=== PATIENT | male | born 1965 | race Caucasian/White ===

== ENCOUNTER → 2017-06-04 | Outpatient (CLI) | payer OTHER ==
[~2017-06-04] MED LIST: BUSP30TA2 PO; LORA1TAB PO; OXCA150T5 PO; QUET300T3 PO; QUET50TA PO; SIMV40TA PO
[2017-06-04 14:12] LABS: BASOPHILS % (AUTO) 0.4 % (0-1); EOSINOPHILS # (AUTO) 0.1 X10'3 (0-0.9); EOSINOPHILS % (AUTO) 1.3 % (0-6); HEMATOCRIT 45.4 % (42.0-52.0); HEMOGLOBIN 15.4 g/dl (14.0-17.9); LYMPHOCYTES # (AUTO) 2.3 X10'3 (1.1-4.8); LYMPHOCYTES % (AUTO) 23.7 % (21-51); MEAN CORPUSCULAR HEMOGLOBIN 31.3 PG (27.0-31.0); MEAN CORPUSCULAR HGB CONC 33.9 % (33.0-36.5); MEAN CORPUSCULAR VOLUME 92.3 FL (78-98); MEAN PLATELET VOLUME 7.5 FL (7.4-10.4); MONOCYTES # (AUTO) 0.7 X10'3 (0-0.9); MONOCYTES % (AUTO) 7.5 % (2-12); NEUTROPHILS # (AUTO) 6.4 X10'3 (1.8-7.7); NEUTROPHILS % (AUTO) 67.1 % (42-75); PLATELET COUNT 339 X10'3 (140-440); RED BLOOD COUNT 4.92 X10'6 (4.70-6.10); RED CELL DISTRIBUTION WIDTH 13.8 % (11.5-14.5); WHITE BLOOD COUNT 9.5 X10'3 (4.5-11.0)
[2017-06-04 14:30] LABS: ALANINE AMINOTRANSFERASE 21 U/L (12-78); ALBUMIN 4.3 G/DL (3.4-5.0); ALBUMIN/GLOBULIN RATIO 1.4 (1.1-1.5); ALKALINE PHOSPHATASE 67 IU/L (46-116); ANION GAP 9 (8-16); ASPARTATE AMINO TRANSFERASE 16 U/L (10-37); BILIRUBIN,TOTAL 0.2 MG/DL (0.1-1.0); BLOOD UREA NITROGEN 10 MG/DL (7-18); CALCIUM 8.8 MG/DL (8.5-10.1); CHLORIDE 105 MMOL/L (99-107); CHOL/HDL RATIO 1.9 (0.00-4.99); CHOLESTEROL 123 MG/DL (0-200); GLUCOSE 104 MG/DL (70-104); HDL CHOLESTEROL 65 MG/DL (35-60); LDL CHOLESTEROL 52 MG/DL (50-100); POTASSIUM 4.1 MMOL/L (3.5-5.1); SODIUM 140 MMOL/L (135-145); TOTAL CARBON DIOXIDE 26.5 MMOL/L (24-32); TOTAL PROTEIN 7.4 G/DL (6.4-8.2); TRIGLYCERIDES 65 MG/DL (20-135); eGFR 78 ML/MIN
== END ==
LOC: LAB 13:29
PROVIDERS: ATTEND Family Medicine
DX: E78.5 Hyperlipidemia, unspecified (principal); D64.9 Anemia, unspecified; E29.9 Testicular dysfunction, unspecified; N42.9 Disorder of prostate, unspecified
CPT/HCPCS: 36415; 80053; 80061; 84153; 84402; 84403; 85025

== ENCOUNTER 2017-06-06 10:38 | Outpatient (CLI) | payer OTHER | END 2017-06-06 23:59 | LOC: 64 CT 10:38 | PROVIDERS: ATTEND Family Medicine | DX: Z72.0 Tobacco use (principal) | CPT/HCPCS: 71250 ==